=== PATIENT | female | born 2000 | race African-American/Black ===

== ENCOUNTER 2023-06-13 23:02 | Emergency (ER) | payer MEDICAID ==
[~2023-06-13] VITALS: Ht 157.5 cm; Wt 70.0 kg
[2023-06-13 23:04] VITALS: O2SAT 99
[2023-06-13] MEDS ORDERED: SODIUM CHLORIDE 0.9% 1,000 ML IV ONE (23:15)
[2023-06-13] MEDS ORDERED: ONDANSETRON HCL 4MG/2ML INJ IV ONE (23:15)
[2023-06-13 23:53] LABS: BASOPHILS % 0.5 % (0.0-2.0); EOSINOPHILS % 0.1 % (0.0-5.0); HEMATOCRIT. 39.7 % (36.0-48.0); HEMOGLOBIN. 13.6 g/dL (12.0-16.0); LYMPHOCYTES % 16.3 % (20.0-50.0); MEAN CORPUSCULAR HEMOGLOBIN 31.6 pg (28.0-32.0); MEAN CORPUSCULAR HGB CONC 34.3 g/dL (31.0-37.0); MEAN CORPUSCULAR VOLUME 92.1 fL (81.0-99.0); MEAN PLATELET VOLUME 8.8 fl (7.4-10.4); NEUTROPHILS % 74.1 % (40.0-76.0); PLATELET 303 x1000/uL (130-400); RED BLOOD CELL COUNT 4.31 mill/uL (4.2-5.4); RED CELL DISTRIBUTION WIDTH 13.6 % (11.6-14.6); WHITE BLOOD COUNT 8.1 x1000/uL (4.5-11.0)
[2023-06-14] LABS: CHLORIDE 102 mEq/L (98-107); INDEX HEMOLYSI 1 (1-3); INDEX ICTERIC 1 (1-4); INDEX LIPEMIC 1 (1-3); POTASSIUM 3.5 mEq/L (3.5-5.1); SODIUM 134 mEq/L (136-145)
[2023-06-14 00:28] LABS: ALANINE AMINOTRANSFERASE 20 IU/L (13-61); ALBUMIN 4.3 g/dL (3.4-5.0); ASPARTATE AMINOTRANSFERASE 16 IU/L (15-37); B-HCG QUANTITATIVE 29712 mIU/mL (<3); CALCIUM 9.2 mg/dL (8.5-10.1); CARBON DIOXIDE 22 mEq/L (21-32); CREATININE 0.5 mg/dL (0.6-1.3); GLUCOSE 99 mg/dL (70-105); PROTEIN TOTAL 8.1 g/dL (6.0-8.3); UREA NITROGEN BLOOD 10 mg/dL (7-21)
[2023-06-14] MEDS ORDERED: ONDANSETRON HCL 4MG/2ML INJ IV NR (04:15)
[2023-06-14 05:00] VITALS: BP 110/62; PULSE 77; RESP 18; TEMP 98
[2023-06-14] MEDS ORDERED: ONDA4TAB50 MT (05:07)
== END 2023-06-14 05:24 | disposition home or self-care (01) ==
LOC: ER 23:02
DX: O21.0 Mild hyperemesis gravidarum (principal); O26.891 Other specified pregnancy related conditions, first trimester; R10.2 Pelvic and perineal pain; Z3A.01 Less than 8 weeks gestation of pregnancy
CPT/HCPCS: 80053; 84702; 85025; 86850; 86900; 86901; 36415; 96361; 96374; 99285; 76830; 76856; 96375; J2405 ×2; J7030; Z7610 ×4

== ENCOUNTER 2023-09-30 08:09 | Emergency (ER) | payer OTHER ==
[~2023-09-30] VITALS: Ht 162.6 cm; Wt 86.0 kg
[~2023-09-30 08:09] MED LIST: ONDA4TAB50 MT
[2023-09-30 08:12] VITALS: TEMP 98.2; O2SAT 100
[2023-09-30] MEDS ORDERED: ACETAMINOPHEN 325MG TABLET PO PRN (08:15)
[2023-09-30] MEDS ORDERED: ONDANSETRON HCL 4MG/2ML INJ IV ONE (08:15)
[2023-09-30] MEDS ORDERED: SODIUM CHLORIDE 0.9% 1,000 ML IV ONE (08:15)
[2023-09-30 08:51] LABS: BASOPHILS % 0.3 % (0.0-2.0); HEMATOCRIT. 41.4 % (36.0-48.0); HEMOGLOBIN. 13.7 g/dL (12.0-16.0); LYMPHOCYTES % 8.2 % (20.0-50.0); MEAN CORPUSCULAR HEMOGLOBIN 30.6 pg (28.0-32.0); MEAN CORPUSCULAR HGB CONC 33.2 g/dL (31.0-37.0); MEAN CORPUSCULAR VOLUME 92.1 fL (81.0-99.0); MONOCYTES % 10.9 % (2.0-8.0); NEUTROPHILS % 80.6 % (40.0-76.0); PLATELET 309 x1000/uL (130-400); RED BLOOD CELL COUNT 4.49 mill/uL (4.2-5.4); RED CELL DISTRIBUTION WIDTH 13.3 % (11.6-14.6); WHITE BLOOD COUNT 7.5 x1000/uL (4.5-11.0)
[2023-09-30 09:34] LABS: ALANINE AMINOTRANSFERASE 16 IU/L (13-61); ALBUMIN 4.1 g/dL (3.4-5.0); ASPARTATE AMINOTRANSFERASE 13 IU/L (15-37); B-HCG QUANTITATIVE 48330 mIU/mL (<3); BILIRUBIN TOTAL 0.7 mg/dL (0.1-1.0); CALCIUM 9.4 mg/dL (8.5-10.1); CARBON DIOXIDE 27 mEq/L (21-32); CHLORIDE 104 mEq/L (98-107); CREATININE 0.5 mg/dL (0.6-1.3); GLUCOSE 96 mg/dL (70-105); INDEX HEMOLYSI 1 (1-3); INDEX ICTERIC 1 (1-4); INDEX LIPEMIC 1 (1-3); POTASSIUM 3.6 mEq/L (3.5-5.1); PROTEIN TOTAL 8.2 g/dL (6.0-8.3); SODIUM 138 mEq/L (136-145); UREA NITROGEN BLOOD 10 mg/dL (7-21)
[2023-09-30 11:34] VITALS: BP 112/72; PULSE 89; RESP 21
== END 2023-09-30 11:39 | disposition home or self-care (01) ==
LOC: ER 08:09
DX: O03.4 Incomplete spontaneous abortion without complication (principal); O26.891 Other specified pregnancy related conditions, first trimester; R11.2 Nausea with vomiting, unspecified; Z3A.01 Less than 8 weeks gestation of pregnancy
CPT/HCPCS: 99285; 96374; 76801; 96361; 80053; 84702; 85025; 86850; 86900; 86901; 36415; 76817; J2405; J7030

== ENCOUNTER 2025-09-21 19:12 | Emergency (ER) | payer MEDICAID ==
[~2025-09-21] VITALS: Ht 162.6 cm; Wt 73.0 kg
[2025-09-21 19:23] VITALS: O2SAT 99
[2025-09-21] MEDS: SODIUM CHLORIDE 0.9% 1,000 ML IV ONE (19:54)
[2025-09-21] MEDS: ONDANSETRON HCL 4MG/2ML INJ IV ONE (19:56)
[2025-09-21] MEDS: ACETAMINOPHEN 500MG TABLET PO ONE (19:56)
[2025-09-21 20:04] LABS: BASOPHILS % 0.3 % (0.0-2.0); EOSINOPHILS % 0.1 % (0.0-5.0); HEMATOCRIT. 37.6 % (36.0-48.0); HEMOGLOBIN. 12.3 g/dL (12.0-16.0); LYMPHOCYTES % 14.7 % (20.0-50.0); MEAN PLATELET VOLUME 8.6 fl (7.4-10.4); MONOCYTES % 8.0 % (2.0-8.0); NEUTROPHILS % 76.9 % (40.0-76.0); PLATELET 376 x1000/uL (130-400); RED BLOOD CELL COUNT 4.46 mill/uL (4.2-5.4); RED CELL DISTRIBUTION WIDTH 16.0 % (11.6-14.6)
[2025-09-21 20:16] LABS: INR 1.1
[2025-09-21 20:19] LABS: CREATININE 0.5 mg/dL (0.6-1.0)
[2025-09-21 20:20] LABS: HCG SCREEN POSITIVE; UREA NITROGEN BLOOD < 5 mg/dL (9-23)
[2025-09-21 20:21] LABS: ASPARTATE AMINOTRANSFERASE 15 IU/L (<34)
[2025-09-21 20:22] LABS: BILIRUBIN DIRECT 0.4 mg/dL (<=3.0); BILIRUBIN TOTAL 1.1 mg/dL (0.1-1.0); PROTEIN TOTAL 7.7 g/dL (6.0-8.3)
[2025-09-21 20:58] LABS: B-HCG QUANTITATIVE 82290 mIU/mL (<6)
[2025-09-21] MEDS ORDERED: ACET-2708 MT (23:04)
[2025-09-21] MEDS ORDERED: ONDA4TAB50 MT (23:04)
[2025-09-21 23:34] VITALS: BP 112/79; PULSE 71; RESP 14; TEMP 36.9; O2SAT 100
== END 2025-09-21 23:36 | disposition home or self-care (01) ==
LOC: ER 19:12 → CMPBEDREQ 23:53
DX: O21.0 Mild hyperemesis gravidarum (principal); R10.20 Pelvic and perineal pain unspecified side; Z3A.01 Less than 8 weeks gestation of pregnancy
CPT/HCPCS: 99285; 96374; 76700; 76801; 96361; 80076; 80048; 84703; 84702; 83690; 83735; 85025; 85610; 85730; 86850; 86900; 86901; 36415; 76817; J2405; J7030; 76857